=== PATIENT | female | born 1975 | race Hispanic/Latino ===

== ENCOUNTER 2023-05-11 19:08 | Emergency (ER) | payer BC ==
[2023-05-11] MEDS ORDERED: Ketorolac Tromethamine 30 MG (1 mL) VIAL ONE (19:33)
== END 2023-05-11 20:20 | disposition home or self-care (01) ==
LOC: CSHERS 19:08
DX: M25.522 Pain in left elbow (principal); E03.9 Hypothyroidism, unspecified; Z79.899 Other long term (current) drug therapy
CPT/HCPCS: 96372; J1885